=== PATIENT | female | born 1930 | race Caucasian/White ===

== ENCOUNTER 2016-12-09 10:27 | Emergency (ER) | payer OTHER ==
[~2016-12-09] VITALS: Ht 165.1 cm; Wt 62.6 kg
[2016-12-09] MEDS ORDERED: ACETAMINOPHEN/CODEINE#3 (300/30mg) TAB PO ONE (12:45)
[2016-12-09 15:05] LABS: Urine Bilirubin Negative (Negative); Urine Blood Negative /uL (Negative); Urine Color Yellow (Yellow); Urine Glucose Normal (Normal); Urine Ketone Negative (Negative); Urine Nitrite POSITIVE (Negative); Urine RBC None Seen /hpf (0 - 4); Urine Squamous Epithelial Cell FEW /hpf (<5); Urine Urobilinogen Normal (Negative)
[2016-12-09 15:45] VITALS: BP 133/62
== END 2016-12-09 17:30 | disposition home or self-care (01) ==
LOC: ER 10:27 → EDBD 10:27 → ER 17:30
DX: S61.511A Laceration without foreign body of right wrist, initial encounter (principal); S43.401A Unspecified sprain of right shoulder joint, initial encounter; M25.551 Pain in right hip; R51 Headache; W19.XXXA Unspecified fall, initial encounter; Y93.01 Activity, walking, marching and hiking; Y99.8 Other external cause status; Y92.096 Garden or yard of other non-institutional residence as the place of occurrence of the external cause
CPT/HCPCS: 70450; 72170; 72192; 73030; 73110; 73562; 81001

== ENCOUNTER 2017-07-06 18:00 | Observation (INO) | payer OTHER ==
[~2017-07-06] VITALS: Ht 170.2 cm; Wt 59.0 kg
[2017-07-06] MEDS ORDERED: SODIUM CHLORIDE 0.9% 1,000 ML IVB ONE (18:50)
[2017-07-06] MEDS ORDERED: MORPHINE SULFATE 4 MG/ML SYR/VIAL IV ONE ×2 (19:00→23:45)
[2017-07-06] MEDS ORDERED: ACETAMINOPHEN 325 MG TAB PO ONE (19:15)
[2017-07-06] MEDS ORDERED: ONDANSETRON HCL 4 MG/2 ML VIAL IV ONE ×2 (19:15→23:45)
[2017-07-06 19:37] LABS: INR 1.01 (0.9-1.15); Partial Thromboplastin Time 25.7 sec (22.64-33.71)
[2017-07-06 19:44] LABS: Basophils # (auto) 0.1 uL; Eosinophils # (auto) 0.3 uL; Eosinophils % (auto) 1.8 % (0.0-7.0); Hemoglobin 11.3 g/dL (12.2-16.2); Lymphocytes # (auto) 2.4 uL; Monocytes # (auto) 1.1 uL; Red Blood Cells 4.37 10^6/uL (4.0-5.20)
[2017-07-06 19:45] LABS: Basophils % (auto) 0.8 % (0.0-2.0); Hematocrit 35.1 % (36.0-46.0); Lymphocytes % (auto) 16.8 % (10.0-50.0); Mean Corpuscular Hemoglobin 25.8 pg (28.0-32.0); Mean Corpuscular Hgb Conc. 32.2 g/dL (32.0-36.0); Mean Corpuscular Volume 80.2 fL (80.0-100.0); Neutrophils # (auto) 10.2 uL; Neutrophils % (auto) 72.6 % (37.0-80.0); Nucleated Red Blood Cells % 0.1 %; Red Cell Distribution Width 16.4 % (11.8-14.3); White Blood Cell 14.1 10^3/uL (4.4-10.8)
[2017-07-06 19:46] LABS: Albumin 2.4 g/dL (3.4-5.0); BUN/Creatinine Ratio 16.7; Bilirubin, Total 0.3 mg/dL (0.2-1.0); Calcium 10.3 mg/dL (8.5-10.1); Total Protein 7.8 g/dL (6.4-8.2)
[2017-07-06 19:51] LABS: Magnesium 2.1 mg/dL (1.6-2.6)
[2017-07-06 19:52] LABS: Platelet Count (auto) 763 10^3/uL (140-450)
[2017-07-06 19:56] LABS: Urine Bacteria NONE SEEN /hpf (None Seen); Urine Blood Negative /uL (Negative); Urine Specific Gravity 1.015 (1.001-1.035); Urine WBC 1 /hpf (0 - 5)
[2017-07-06 20:06] LABS: Alcohol, Urine < 3.0 mg/dL (0-5); Amphetamine Screen, Urine NEGATIVE (NEGATIVE); Barbiturate Scree,Urine NEGATIVE (NEGATIVE); Benzodiazephine Screen, Urine NEGATIVE (NEGATIVE); Cannabinoid Screen, Urine NEGATIVE (NEGATIVE); Cocaine Screen, Urine NEGATIVE (NEGATIVE); Opiate Scree,Urine NEGATIVE (NEGATIVE); Phencyclidine Screen, Urine NEGATIVE (NEGATIVE)
[2017-07-06] MEDS ORDERED: cefTRIAXone 1GM/10ml IVPUSH 10 ML IV ONE (20:15)
[2017-07-06 23:47] VITALS: BP 107/66
== END 2017-07-06 22:20 | disposition home or self-care (01) | DRG 554 ==
LOC: EDBD 18:00 → ER 18:06 → OVERFLOW 18:52 → ER 22:20
PROVIDERS: ADMIT Family Medicine; ATTEND Family Medicine
DX: M19.90 Unspecified osteoarthritis, unspecified site (principal); I11.0 Hypertensive heart disease with heart failure; I50.9 Heart failure, unspecified; B34.9 Viral infection, unspecified; R79.89 Other specified abnormal findings of blood chemistry; K21.9 Gastro-esophageal reflux disease without esophagitis; Z82.49 Family history of ischemic heart disease and other diseases of the circulatory system; Z66 Do not resuscitate; I25.10 Atherosclerotic heart disease of native coronary artery without angina pectoris; Z87.440 Personal history of urinary (tract) infections; Z96.649 Presence of unspecified artificial hip joint; Z95.0 Presence of cardiac pacemaker; F41.9 Anxiety disorder, unspecified
CPT/HCPCS: 36415; 71045; 80053; 80307; 81001; 83605; 83735; 84484; 85025; 85610; 85652; 85730; 87040; 87086; 93005; 96361; 96374; 96375; 96376; 99285; G0378; J2270; J2405; J7030